=== PATIENT | female | born 1995 | race Caucasian/White ===

== ENCOUNTER 2017-06-01 19:52 | Emergency (ER) | payer OTHER ==
[~2017-06-01] VITALS: Ht 175.3 cm; Wt 72.5 kg
[2017-06-01 19:54] VITALS: BP 141/74; PULSE 93; RESP 16; TEMP 98; O2SAT 99
--- NOTE | 2017-06-01 20:10 | PD ---
Physical Exam Date Seen by Provider: Jun 01, 2017 Time Seen by Provider: 20:08 Narrative 22 YOHF C/O L PELVIC PAIN SINCE THIS AM. FEELING HOT. ON PERIOD NOW. H/O OVARIAN CYST. 04/24 PAIN VS REVIEWED WAITING FOR BED PLACEMENT Data Data Last Documented VS Vital Signs Date Time Temp Pulse Resp B/P Pulse Ox O2 Delivery O2 Flow Rate FiO2 06/01/17 19:54 98.0 93 16 141/74 99 Room Air MDM Supervised Visit with ALYSSA: Mookie Venegas Jun 01, 2017 20:10
[2017-06-01 21:22] LABS: BLOOD, URINE NEG (NEG); GLUCOSE,URINE NEG (NEG); KETONE, URINE NEG (NEG); MUCUS URINE FEW /lpf (OCC); NITRITE,URINE NEG (NEG); PH, URINE 6.5 (5.0-8.5); SQUAMOUS EPITHELIAL CELL URINE <1 /hpf (0-5); URINE COLOR YELLOW (YELLW/STRAW)
[2017-06-01] MEDS ORDERED: SODIUM CHLOR 0.9% 1000 ML INJ 1,000 ML IV ONE (22:19)
[2017-06-01] MEDS ORDERED: ONDANSETRON HCL 4 MG/2 ML VIAL IVP ONE (22:30)
[2017-06-01] MEDS ORDERED: SODIUM CHLORIDE 0.9% FLUSH 10 ML FLUSH IVF PRN (22:30)
[2017-06-01] MEDS ORDERED: MORPHINE SULFATE 4 MG/ML INJ IV ONE (22:30)
[2017-06-01 22:52] LABS: AUTOMATED NEUTROPHIL # 6.9 TH/MM3 (1.8-7.7); BASOPHIL # 0.1 TH/MM3 (0-0.2); BASOPHIL % 0.8 % (0.0-2.0); EOSINOPHIL # 0.2 TH/MM3 (0-0.4); EOSINOPHIL % 1.6 % (0.0-4.0); HEMATOCRIT 38.8 % (35.0-46.0); HEMO FLAGS DIFF FINAL; LYMPH % 26.8 % (9.0-44.0); MEAN CELL VOLUME 87.7 FL (80.0-100.0); MEAN CORPUSCULAR HEMOGLOBIN 30.5 PG (27.0-34.0); MEAN CORPUSCULAR HGB CONC 34.8 % (32.0-36.0); MONO % 8.7 % (0.0-8.0); NEUT % 62.1 % (16.0-70.0); PLATELET COUNT 307 TH/MM3 (150-450); RED BLOOD COUNT 4.43 MIL/MM3 (4.00-5.30); WHITE BLOOD COUNT 11.1 TH/MM3 (4.0-11.0)
[2017-06-01 23:10] LABS: ALKALINE PHOSPHATASE 91 U/L (45-117); TOTAL BILIRUBIN ADULT 0.2 MG/DL (0.2-1.0)
[2017-06-01 23:11] LABS: ALT (GPT) 29 U/L (10-53); ANION GAP 8 MEQ/L (5-15); AST (GOT) 42 U/L (15-37); BICARBONATE 22.9 MEQ/L (21.0-32.0); BLOOD UREA NITROGEN 11 MG/DL (7-18); CHLORIDE 108 MEQ/L (98-107); GLOMERULAR FILTRATION RATE 83 ML/MIN (>89); SODIUM (NA) 139 MEQ/L (136-145)
--- NOTE | 2017-06-01 23:45 | PD ---
HPI Chief Complaint: Pain: Acute or Chronic Time Seen by Provider: 22:15 Travel History International Travel<30 days: No Contact w/Intl Traveler<30days: No Traveled to known affect area: No History of Present Illness HPI C/O LEFT ADNEXAL AREA PAIN, 05/25, [place], NONRAD....NO FEVER/N/V/D/CP/MRUCIA...NO ALLEVIATING OR AGGRAVATING FACTORS PFSH Past Medical History Diminished Hearing: No Reproductive: Yes (ENDOMETRIOSIS) ?: Not LMP: 06/01/17 Past Surgical History Tonsillectomy: Yes Social History Alcohol Use: Yes (OCC/MONTHLY) Tobacco Use: No Substance Use: No Allergies-Medications (Allergen,Severity, Reaction): Coded Allergies: No Known Allergies (Unverified , 05/21/16) Reported Meds & Prescriptions Reported Meds & Active Scripts Active Percocet (Oxycodone-Acetaminophen) 5-325 mg Tab 1 Tab PO Q6H PRN Ketorolac (Ketorolac Tromethamine) 10 Mg Tab 10 Mg PO TID PRN Reported Tylenol-Codeine #3 (Acetaminophen-Codeine) 300-30 mg Tab 1 Tab PO Q4H PRN Lortab (Hydrocodone-Acetaminophen) 7.5-325 Mg Tab 1 Tab PO Q4H PRN Review of Systems Except as stated in HPI: all other systems reviewed are Neg Gastrointestinal: Positive: Abdominal Pain Physical Exam Narrative GENERAL: SKIN: Warm and dry. HEAD: Atraumatic. Normocephalic. EYES: Pupils equal and round. No scleral icterus. No injection or drainage. ENT: No nasal bleeding or discharge. Mucous membranes pink and moist. NECK: Trachea midline. No JVD. CARDIOVASCULAR: Regular rate and rhythm. RESPIRATORY: No accessory muscle use. Clear to auscultation. Breath sounds equal bilaterally. GASTROINTESTINAL: Abdomen soft,,nondistended. TTP OVER LEFT ADNEXAL REGION ONLY MUSCULOSKELETAL: Extremities without clubbing, cyanosis, or edema. No obvious deformities. NEUROLOGICAL: Awake and alert. No obvious cranial nerve deficits. Motor grossly within normal limits. Five out of 5 muscle strength in the arms and legs. Normal speech. PSYCHIATRIC: Appropriate mood and affect; insight and judgment normal. Data Data Last Documented VS Orders Orders Ua Includes Microscopic (06/01/17 20:11) Ed Urine Pregnancytest Poc (06/01/17 20:11) Complete Blood Count With Diff (06/01/17 22:19) Comprehensive Metabolic Panel (06/01/17 22:19) Ct Abd/Pel W/O Iv Contrast (06/01/17 22:19) Ecg Monitoring (06/01/17 22:19) Iv Access Insert/Monitor (06/01/17 22:19) Morphine Inj (Morphine Inj) (06/01/17 22:30) Ondansetron Inj (Zofran Inj) (06/01/17 22:30) Sodium Chloride 0.9% Flush (Ns Flush) (06/01/17 22:30) Sodium Chlor 0.9% 1000 Ml Inj (Ns 1000 M (06/01/17 22:19) Acetaminophen (Tylenol) (06/02/17 00:45) Labs Laboratory Tests Test 06/01/17 20:15 06/01/17 22:25 Urine Color YELLOW Urine Turbidity CLEAR Urine pH 6.5 Urine Specific [place] 1.025 Urine Protein NEG mg/dL Urine Glucose (UA) NEG mg/dL Urine Ketones NEG mg/dL Urine Occult Blood NEG Urine Nitrite NEG Urine Bilirubin NEG Urine Urobilinogen LESS THAN 2.0 MG/DL Urine Leukocyte Esterase NEG Urine RBC LESS THAN 1 /hpf Urine WBC LESS THAN 1 /hpf Urine Squamous Epithelial Cells <1 /hpf Urine Mucus FEW /lpf Microscopic Urinalysis Comment White Blood Count 11.1 TH/MM3 Red Blood Count 4.43 MIL/MM3 Hemoglobin 13.5 GM/DL Hematocrit 38.8 % Mean Corpuscular Volume 87.7 FL Mean Corpuscular Hemoglobin 30.5 PG Mean Corpuscular Hemoglobin Concent 34.8 % Red Cell Distribution Width 13.0 % Platelet Count 307 TH/MM3 Mean Platelet Volume 7.9 FL Neutrophils (%) (Auto) 62.1 % Lymphocytes (%) (Auto) 26.8 % Monocytes (%) (Auto) 8.7 % Eosinophils (%) (Auto) 1.6 % Basophils (%) (Auto) 0.8 % Neutrophils # (Auto) 6.9 TH/MM3 Lymphocytes # (Auto) 3.0 TH/MM3 Monocytes # (Auto) 1.0 TH/MM3 Eosinophils # (Auto) 0.2 TH/MM3 Basophils # (Auto) 0.1 TH/MM3 CBC Comment DIFF FINAL Differential Comment Blood Urea Nitrogen 11 MG/DL Creatinine 0.84 MG/DL Random Glucose 104 MG/DL Total Protein 7.3 GM/DL Albumin 3.5 GM/DL Calcium Level 8.1 MG/DL Alkaline Phosphatase 91 U/L Aspartate Amino Transf (AST/SGOT) 42 U/L Alanine Aminotransferase (ALT/SGPT) 29 U/L Total Bilirubin 0.2 MG/DL Sodium Level 139 MEQ/L Potassium Level 5.0 MEQ/L Chloride Level 108 MEQ/L Carbon Dioxide Level 22.9 MEQ/L Anion Gap 8 MEQ/L Estimat Glomerular Filtration Rate 83 ML/MIN MDM Medical Decision Making Medical Screen Exam Complete: Yes Emergency Medical Condition: Yes Medical Record Reviewed: Yes Differential Diagnosis DIVERTIC V COLITIS V OVARIAN CYST V UTI Narrative Course ct did not show divertic or colitis... h&p c/w ovarian cyst Diagnosis Primary Impression: OVARIAN CYST Scripts Oxycodone-Acetaminophen (Percocet) 5-325 mg Tab 1 TAB PO Q6H Y for PAIN, #20 TAB Prov: Trever Sprague MD 06/02/17 Ketorolac (Ketorolac) 10 Mg Tab 10 MG PO TID Y for Pain Management, #20 TAB 0 Refills Prov: Trever Sprague MD 06/02/17 Disposition: 01 DISCHARGE HOME Condition: Stable Trever Sprague MD Jun 01, 2017 23:45
--- NOTE | 2017-06-02 00:10 | RADRPT ---
EXAM DATE/TIME: 06/01/2017 23:18 [facility] COMPARISON: No previous studies available for comparison. INDICATIONS : Diffuse abdominal pain. ORAL CONTRAST: No oral contrast ingested. RADIATION DOSE: 6.84 CTDIvol (mGy) MEDICAL HISTORY : None SURGICAL HISTORY : None. ENCOUNTER: Initial ACUITY: 1 day PAIN SCALE: 7/10 LOCATION: abdomen TECHNIQUE: Volumetric scanning of the abdomen and pelvis was performed. Using automated exposure control and ad justment of the mA and/or kV according to patient size, radiation dose was kept as low as reasonably achievable to obtain optimal diagnostic quality images. DICOM format image data is available electro nically for review and comparison. FINDINGS: LOWER LUNGS: The visualized lower lungs are clear. LIVER: Homogeneous density without lesion. There is no dilation of the biliary tree. No calcified gallston es. SPLEEN: Normal size without lesion. PANCREAS: Within normal limits. KIDNEYS: Normal in size and shape. There is no mass, stone, or hydronephrosis. ADRENAL GLANDS: Within normal limits. VASCULAR: There is no aortic aneurysm. BOWEL/MESENTERY: The stomach, small bowel, and colon demonstrate no acute abnormality. There is no free intraperitone al air or fluid. ABDOMINAL WALL: Within normal limits. RETROPERITONEUM: There is no lymphadenopathy. BLADDER: No wall thickening or mass. REPRODUCTIVE: Within normal limits. INGUINAL: There is no lymphadenopathy or hernia. 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 Mild levoscoliosis of the lumbar sp ine. Otherwise intact. CONCLUSION: 1. No acute intra-abdominal or pelvic process to explain current clinical symptoms. 2. Probable anatomic variant of the thoracolumbar spine as detailed above. Asaf Lerma MD on June 01, 2017 at 23:57 Board Certified Radiologist. This report was verified electronically.
[2017-06-02] MEDS ORDERED: HYDR-3534 PO (00:18)
[2017-06-02] MEDS ORDERED: TYLETAB34 PO (00:18)
[2017-06-02] MEDS ORDERED: KETO10 PO (00:31)
[2017-06-02] MEDS ORDERED: PERC5TAB12 PO (00:31)
[2017-06-02] MEDS ORDERED: ACETAMINOPHEN 325 MG TAB PO ONE (00:45)
[2017-06-02 00:47] VITALS: BP 135/76
== END 2017-06-02 00:50 | disposition home or self-care (01) ==
LOC: NEPE 19:52
DX: N83.202 Unspecified ovarian cyst, left side (principal); Z79.899 Other long term (current) drug therapy
CPT/HCPCS: 74176; 80053; 81001; 84703; 85025; 96361; 96374; 96375; 99285; J2270; J2405; J7030

== ENCOUNTER 2017-08-19 07:04 | Emergency (ER) | payer OTHER ==
[~2017-08-19] VITALS: Ht 177.8 cm; Wt 80.0 kg
[~2017-08-19 07:04] MED LIST: HYDR-3534 PO; KETO10 PO; PERC5TAB12 PO; TYLETAB34 PO
[2017-08-19 07:10] VITALS: BP 128/78; PULSE 97; RESP 16; TEMP 98.6; O2SAT 99
[2017-08-19 07:46] VITALS: BP 126/66; PULSE 80; RESP 22; TEMP 97.5; O2SAT 100
--- NOTE | 2017-08-19 08:12 | PD ---
HPI Chief Complaint: Abdominal Pain Time Seen by Provider: 07:40 Travel History International Travel<30 days: No Contact w/Intl Traveler<30days: No Traveled to known affect area: No History of Present Illness HPI The patient was seen and examined in the presence of the nurse. This patient complains of pelvic pain. Location is left lower quadrant. Symptoms are moderate to severe in nature. Duration one day. No alleviating factors. No fever. No vomiting or diarrhea. She is on her menstrual period. She's had ovarian cystic problems before. No exacerbating factors. PFSH Past Medical History Diminished Hearing: No Reproductive: Yes (ENDOMETRIOSIS) Tetanus Vaccination: < 5 Years ?: Not LMP: 08/19/17 Past Surgical History Oral Surgery: Yes (wisdom) Tonsillectomy: Yes Other Surgery: Yes (2 cysts from right breast) Social History Alcohol Use: Yes (OCC/MONTHLY) Tobacco Use: No Substance Use: No Allergies-Medications (Allergen,Severity, Reaction): Coded Allergies: No Known Allergies (Unverified Adverse Reaction, Unknown, 08/19/17) Reported Meds & Prescriptions Reported Meds & Active Scripts Active Percocet (Oxycodone-Acetaminophen) 5-325 mg Tab 1 Tab PO Q6H PRN Ketorolac (Ketorolac Tromethamine) 10 Mg Tab 10 Mg PO TID PRN Reported Tylenol-Codeine #3 (Acetaminophen-Codeine) 300-30 mg Tab 1 Tab PO Q4H PRN Lortab (Hydrocodone-Acetaminophen) 7.5-325 Mg Tab 1 Tab PO Q4H PRN Review of Systems General / Constitutional: No: Fever Eyes: No: Visual changes HENT: No: Headaches Cardiovascular: No: Chest Pain or Discomfort Respiratory: No: Shortness of Breath Gastrointestinal: Positive: Abdominal Pain Genitourinary: Positive: Pelvic Pain, Vaginal Bleeding, No: Dysuria Musculoskeletal: No: Pain Skin: No Rash Neurologic: No: Weakness Psychiatric: No: Depression Endocrine: No: Polydipsia Hematologic/Lymphatic: No: Easy Bruising Physical Exam Narrative GENERAL: Well-nourished, well-developed patient with left lower quadrant pain . SKIN: Focused skin assessment reveals no rash and nodules. Skin is Warm and dry. HEAD: Atraumatic. Normocephalic. EYES: Pupils equal and round. No scleral icterus. No injection or drainage. ENT: No nasal bleeding or discharge. Mucous membranes pink and moist. NECK: Trachea midline. No JVD. CARDIOVASCULAR: Regular rate and rhythm. No murmur appreciated. RESPIRATORY: No accessory muscle use. Clear to auscultation. Breath sounds equal bilaterally. GASTROINTESTINAL: Abdomen soft, left lower quadrant is tender without rebound or guarding, nondistended. Hepatic and splenic margins not palpable. MUSCULOSKELETAL: No obvious deformities. No clubbing. No cyanosis. No edema. NEUROLOGICAL: Awake and alert. No obvious cranial nerve deficits. Motor grossly within normal limits. Normal speech. PSYCHIATRIC: Appropriate mood and affect; insight and judgment normal. Pelvic: Speculum exam reveals scant blood in the vault. There is left sided adnexal tenderness. No right sided tenderness. No cervical motion tenderness or discharge other than blood Data Data Last Documented VS Vital Signs Date Time Temp Pulse Resp B/P (MAP) Pulse Ox O2 Delivery O2 Flow Rate FiO2 08/19/17 07:46 97.5 80 22 126/66 (86) 100 Room Air Orders Orders Ed Urine Pregnancytest Poc (08/19/17 08:06) Ondansetron Inj (Zofran Inj) (08/19/17 08:15) Morphine Inj (Morphine Inj) (08/19/17 08:15) Us Pelvis Comp W Dop Transvag (08/19/17 ) Ed Discharge Order (08/19/17 09:52) MDM Medical Decision Making Medical Screen Exam Complete: Yes Emergency Medical Condition: Yes Medical Record Reviewed: Yes Differential Diagnosis Ovarian torsion, ectopic, PID Narrative Course I have reviewed the patient's electronic medical record. Urine is negative No sign of PID or pelvic infection on exam Ultrasound of the pelvis ordered to rule out torsion I gave her injection of morphine and Zofran for symptom relief Pelvic ultrasound is normal I wrote her some Tylenol 3 to use as needed for symptom relief Stable for outpatient follow-up Diagnosis Primary Impression: Acute pelvic pain, female Additional Instructions: The patient was advised to follow up with their physician and return if they worsen. The patient was warned about potential sedation for the medications they will receive on prescription. Med/Other Pt SpecificInfo: Prescription(s) given Disposition: DISCHARGE HOME Condition: Stable Wes Jean MD Aug 19, 2017 08:12
[2017-08-19] MEDS ORDERED: ONDANSETRON HCL 4 MG/2 ML VIAL IM ONE (08:15)
[2017-08-19] MEDS ORDERED: MORPHINE SULFATE 4 MG/ML INJ IM ONE (08:15)
--- NOTE | 2017-08-19 09:26 | RADRPT ---
EXAM DATE/TIME: 08/19/2017 08:40 [facility] COMPARISON: No previous studies available for comparison. INDICATIONS : Left sided pelvic pain. MEDICAL HISTORY : Endometriosis. SURGICAL HISTORY : Tonsillectomy. Cyst removal right breast. Donner teeth removed. ENCOUNTER: Initial ACUITY: 3 days PAIN SCORE: 8/10 LOCATION: Bilateral pelvis MEASUREMENTS: UTERUS: 7.2 x 4.3 x 3.8 cm ENDOMETRIAL STRIPE: 8 mm RIGHT OVARY: 3.5 x 2.4 x 3.0 cm LEFT OVARY: 3.1 x 2.4 x 2.6 cm FINDINGS: UTERUS: The myometrium has homogeneous echotexture without mass. RIGHT OVARY: Ovary contains no mass or significant cystic lesion. Blood flow is demonstrated. LEFT OVARY: Ovary contains no mass or significant cystic lesion. Blood flow is demonstrated. MISCELLANEOUS: No free fluid. CONCLUSION: 1. Unremarkable pelvic ultrasound exam. Clifton Lovell MD on August 19, 2017 at 9:21 Board Certified Radiologist. This report was verified electronically.
[2017-08-19] MEDS ORDERED: TYLETAB34 PO (09:54)
== END 2017-08-19 10:30 | disposition home or self-care (01) ==
LOC: NEPE 07:04
DX: R10.2 Pelvic and perineal pain (principal); R10.32 Left lower quadrant pain
CPT/HCPCS: 76830; 76856; 84703; 93975; 96372; 99285; J2270; J2405; 90472

== ENCOUNTER 2017-10-11 01:49 | Emergency (ER) | payer OTHER ==
[~2017-10-11] VITALS: Ht 175.3 cm; Wt 81.0 kg
[2017-10-11 01:52] VITALS: BP 124/75; PULSE 79; RESP 16; TEMP 98.2; O2SAT 99
[2017-10-11 02:04] VITALS: BP 114/82; PULSE 87; RESP 20; TEMP 98.3; O2SAT 99
[2017-10-11] MEDS ORDERED: KETOROLAC TROMETHAMINE 60 MG/2 ML (IM) VIAL IM ONE (02:30)
--- NOTE | 2017-10-11 03:19 | PD ---
HPI Chief Complaint: Pain: Acute or Chronic Time Seen by Provider: 02:04 Travel History International Travel<30 days: No Contact w/Intl Traveler<30days: No Traveled to known affect area: No History of Present Illness HPI Patient is a 22-year-old female coming in saying she is having severe pain suprapubic that is worse during her period. It has been for the last 2 days. But she says she has cyclic recurrence for the last several months the comes worse with her.. She is supposed to see a apparel patternmaker a possible laparoscopic endometriosis removal however she is not have that appointment yet. Mother and aunt have had endometriosis. She also reports that she thinks she has fibroids. Patient has severe 8 out of 10 pain it's cramp-like but it is not like her regular. Menstrual cramp she says it is different and feels outside of that area. She took Motrin without relief of her symptoms. She is not seen doctor for this complaint. PFSH Past Medical History Diminished Hearing: No Reproductive: Yes (ENDOMETRIOSIS) Influenza Vaccination: No ?: Not LMP: 10/11/17 Past Surgical History Oral Surgery: Yes (wisdom) Tonsillectomy: Yes Other Surgery: Yes (2 cysts from right breast) Social History Alcohol Use: Yes (OCC/MONTHLY) Tobacco Use: No Substance Use: No Allergies-Medications (Allergen,Severity, Reaction): Coded Allergies: No Known Allergies (Unverified Adverse Reaction, Unknown, 08/19/17) Reported Meds & Prescriptions Reported Meds & Active Scripts Active Tramadol (Tramadol HCl) 50 Mg Tab 50 Mg PO Q4H PRN Ibuprofen 600 Mg Tab 600 Mg PO Q6H PRN Tylenol-Codeine #3 (Acetaminophen-Codeine) 300-30 mg Tab 1 Tab PO Q4H PRN Percocet (Oxycodone-Acetaminophen) 5-325 mg Tab 1 Tab PO Q6H PRN Ketorolac (Ketorolac Tromethamine) 10 Mg Tab 10 Mg PO TID PRN Reported Tylenol-Codeine #3 (Acetaminophen-Codeine) 300-30 mg Tab 1 Tab PO Q4H PRN Lortab (Hydrocodone-Acetaminophen) 7.5-325 Mg Tab 1 Tab PO Q4H PRN Review of Systems Except as stated in HPI: all other systems reviewed are Neg Genitourinary: Positive: Pelvic Pain, Dysmenorrhea (reports a history of severe pain with her and sees and is scheduled for a gynecological consult), Menorrhagia Physical Exam Narrative GENERAL: is crawled up on the stretcher in pain when I enter the room. Nontoxic-appearing SKIN: Warm and dry. HEAD: Atraumatic. Normocephalic. EYES: Pupils equal and round. No scleral icterus. No injection or drainage. ENT: No nasal bleeding or discharge. Mucous membranes pink and moist. NECK: Trachea midline. No JVD. CARDIOVASCULAR: Regular rate and rhythm. RESPIRATORY: No accessory muscle use. Clear to auscultation. Breath sounds equal bilaterally. GASTROINTESTINAL: Abdomen tenderness above the suprapubic area with percussion and palpation soft, Hepatic and splenic margins not palpable. MUSCULOSKELETAL: Extremities without clubbing, cyanosis, or edema. No obvious deformities. NEUROLOGICAL: Awake and alert. No obvious cranial nerve deficits. Motor grossly within normal limits. Five out of 5 muscle strength in the arms and legs. Normal speech. PSYCHIATRIC: Appropriate mood and affect; insight and judgment normal. Data Data Last Documented VS Orders Orders Ketorolac Inj (Toradol Inj) (10/11/17 02:30) Urinalysis - C+S If Indicated (10/11/17 03:37) Tramadol (Ultram) (10/11/17 03:45) Ed Discharge Order (10/11/17 05:19) Labs Laboratory Tests Test 10/11/17 04:50 Urine Color YELLOW Urine Turbidity CLEAR Urine pH 7.0 Urine Specific [place] 1.024 Urine Protein TRACE mg/dL Urine Glucose (UA) NEG mg/dL Urine Ketones NEG mg/dL Urine Occult Blood NEG Urine Nitrite NEG Urine Bilirubin NEG Urine Urobilinogen LESS THAN 2.0 MG/DL Urine Leukocyte Esterase NEG Urine RBC LESS THAN 1 /hpf Urine Squamous Epithelial Cells <1 /hpf Urine Mucus FEW /lpf Microscopic Urinalysis Comment CULT NOT INDICATED MDM Medical Decision Making Medical Screen Exam Complete: Yes Emergency Medical Condition: Yes Differential Diagnosis Differential diagnosis includes endometriosis versus fibroid versus chronic pelvic pain versus irregular menstrual pain or other possible TOA Narrative Course UA negative and pain better follow up out pt Diagnosis Primary Impression: Pelvic pain in female Patient Instructions: General Instructions, Pelvic Pain in Women (ED) Scripts Tramadol (Tramadol) 50 Mg Tab 50 MG PO Q4H Y for PAIN, #5 TAB 0 Refills Prov: Melecio Varma MD 10/11/17 Ibuprofen (Ibuprofen) 600 Mg Tab 600 MG PO Q6H Y for Pain/Inflammation, #40 TAB 0 Refills Prov: Melecio Varma MD 10/11/17 Disposition: 01 DISCHARGE HOME Condition: Good Melecio Varma MD Oct 11, 2017 03:19
[2017-10-11] MEDS ORDERED: traMADol HCL 50 MG TAB PO ONE (03:45)
[2017-10-11 05:05] VITALS: BP 103/60; PULSE 74; RESP 14; O2SAT 98
[2017-10-11 05:05] LABS: BILIRUBIN, URINE NEG (NEG); BLOOD, URINE NEG (NEG); GLUCOSE,URINE NEG (NEG); KETONE, URINE NEG (NEG); MUCUS URINE FEW /lpf (OCC); NITRITE,URINE NEG (NEG); SQUAMOUS EPITHELIAL CELL URINE <1 /hpf (0-5); URINE COLOR YELLOW (YELLW/STRAW); URINE LEUKOCYTE ESTERASE NEG (NEG)
[2017-10-11] MEDS ORDERED: TRAM50TA PO (05:26)
[2017-10-11] MEDS ORDERED: IBUP-232 PO (05:26)
== END 2017-10-11 05:53 | disposition home or self-care (01) ==
LOC: NEPC 01:49
DX: R10.2 Pelvic and perineal pain (principal)
CPT/HCPCS: 81001; 96372; 99284; J1885